=== PATIENT | female | born 1980 | race American Indian/Alaskan Native ===

== ENCOUNTER 2016-07-16 16:59 | Emergency (ER) | payer OTHER, MEDICAID ==
[2016-07-16 17:18] VITALS: BP 113/70
== END 2016-07-17 01:23 | disposition left against medical advice (07) ==
LOC: ED 16:59
DX: M79.89 Other specified soft tissue disorders (principal); Z53.21 Procedure and treatment not carried out due to patient leaving prior to being seen by health care provider

== ENCOUNTER 2017-01-13 23:50 | Emergency (ER) | payer MEDICAID, OTHER ==
[2017-01-14] MEDS ORDERED: NACL 0.9% 1000 ML 1,000 ML IV ONE (00:06)
[2017-01-14 00:55] LABS: Basophils % (Auto) 0.7 % (0.0-1.8); Eosinophils % (Auto) 0.6 % (0.0-4.3); Hematocrit 37.4 % (30.3-42.9); Hemoglobin 12.2 gm/dl (10.1-14.3); Mean Corpuscular HGB Conc 33 % (30-34); Mean Corpuscular Hemoglobin 28 pg (28-32); Mean Corpuscular Volume 87 fl (79-97); Platelet Count 290 K/mm3 (140-440); Red Blood Count 4.32 M/mm3 (3.65-5.03); Red Cell Distribution Width 14.7 % (13.2-15.2); White Blood Count 5.2 K/mm3 (4.5-11.0)
[2017-01-14 01:05] LABS: INR 1.12 (0.87-1.13)
[2017-01-14 01:06] LABS: Partial Thromboplastin Time 31.5 Sec. (24.2-36.6)
[2017-01-14 01:12] LABS: Alanine Aminotransferase 10 units/L (7-56); Albumin 4.1 g/dL (3.9-5); Albumin/Globulin Ratio 1.4 %; Alkaline Phosphatase 65 units/L (35-129); Anion Gap 18 mmol/L; Blood Urea Nitrogen 7 mg/dL (7-17); Calcium 8.7 mg/dL (8.4-10.2); Carbon Dioxide 24 mmol/L (22-30); Chloride 103.3 mmol/L (98-107); Glucose 96 mg/dL (65-100); Lipase 21 units/L (13-60); Sodium 142 mmol/L (137-145); Total Protein 7.1 g/dL (6.3-8.2)
[2017-01-14] MEDS ORDERED: K-DUR PO ONE (03:41)
--- NOTE | 2017-01-14 05:16 | Emergency Department Report ---
HPI - General Chief Complaint: GI Bleed Time Seen by Provider: 01/14/17 03:40 - HPI HPI: This is a 36-year-old Afro-[place] female presents to the emergency department with a few different complaints. The patient says that she has a three-day history of some rectal bleeding in which she sees maroon-colored blood on the stool in the toilet bowl and on the toilet paper. She denies any rectal pain. She also has a 1 week history of some pelvic discomfort. She denies any discharge, dysuria or any vaginal bleeding. Finally, the patient complains of some nonspecific dizziness. She says it feels more like the room is spinning then as if she is going to pass out. She denies any headache, vision change or any neurological deficits. She took some Motrin for her symptoms without any relief. She denies any past medical history. Her primary care physician is Dr. Nicole Villatoro. No recent travel or sick contacts at home. ED Past Medical Hx - Past Medical History Previous Medical History?: No Hx Hypertension: No Hx Diabetes: No Hx Deep Vein Thrombosis: No Hx Renal Disease: No Hx Sickle Cell Disease: No Hx Seizures: No Hx Asthma: No Hx HIV: No - Surgical History Past Surgical History?: No - Social History Smoking Status: Never Smoker Substance Use Type: None - Medications Home Medications: Home Medications Medication Instructions Recorded Confirmed Last Taken Type No Known Home Medications [No 05/08/16 05/08/16 Unknown History Reported Home Medications] ED Review of Systems ROS: Stated complaint: BLOOD IN STOOL/ABD PAIN/HEADACHE/DIZZINESS Other details as noted in HPI Comment: All other systems reviewed and negative Constitutional: denies: chills, fever Eyes: denies: eye pain, eye discharge, vision change ENT: denies: ear pain, throat pain Respiratory: denies: cough, shortness of breath, wheezing Cardiovascular: denies: chest pain, palpitations Gastrointestinal: melena, other (rectal bleeding). denies: nausea, diarrhea Genitourinary: denies: dysuria, discharge Musculoskeletal: denies: back pain, joint swelling, arthralgia Skin: denies: rash, lesions Neurological: other (dizziness). denies: weakness, confusion Physical Exam - Physical Exam Vital Signs: Vital Signs 01/14/17 00:08 Temperature 98.7 F Pulse Rate 88 Respiratory 14 Rate Blood Pressure 113/74 [Right] O2 Sat by Pulse 98 Oximetry Physical Exam: GENERAL: The patient is well-developed well-nourished. HEENT: Normocephalic. Atraumatic. Extraocular motions are intact. Patient has moist mucous membranes. Pupils equal reactive to light bilaterally. Fatigable horizontal nystagmus. NECK: Supple. Trachea is mid line. CHEST/LUNGS: Clear to auscultation. There is no respiratory distress noted. HEART/CARDIOVASCULAR: Regular. There is no tachycardia. There is no gallop rub or murmur. ABDOMEN: Abdomen is soft, nontender. Patient has normal bowel sounds. There is no abdominal distention. SKIN: There is no rash. There is no edema. There is no diaphoresis. NEURO: The patient is awake, alert, and oriented. The patient is cooperative. The patient has no focal neurologic deficits. The patient has normal speech and gait. MUSCULOSKELETAL: There is no tenderness or deformity. There is no limitation range of motion. There is no evidence of acute injury. RECTAL: No hemorrhoids or lesions seen. No gross blood. There was no stool to obtain for guaiac testing. ED Course Vital Signs 01/14/17 00:08 Temperature 98.7 F Pulse Rate 88 Respiratory 14 Rate Blood Pressure 113/74 [Right] O2 Sat by Pulse 98 Oximetry ED Medical Decision Making - Lab Data Result diagrams: 01/14/17 00:28 01/14/17 00:28 - EKG Data -: EKG Interpreted by Ar EKG shows normal: sinus rhythm, axis, intervals, QRS complexes, ST-T waves Rate: normal - EKG Data When compared to previous EKG there are: previous EKG unavailable Interpretation: normal EKG - Radiology Data Radiology results: report reviewed Transvaginal/pelvic ultrasound shows no ovarian mass or torsion. Uterus is unremarkable. There is a hemorrhagic nabothian cyst in the cervix measuring 12 mm x 16 mm. There are cystic follicles in the ovaries. There is no free pelvic fluid. - Medical Decision Making 36-year-old female presents to the ED with complaint of rectal bleeding. There is no gross blood. There is not much stool seen for guaiac testing. No lesions or hemorrhoids. Labs are unremarkable. No leukocytosis or anemia. No electrolyte abnormalities, renal insufficiency or glucose abnormalities. Patient has a complaint of some pelvic discomfort. She is not . There is no vaginal discharge or bleeding. Transvaginal/pelvic ultrasound shows a nabothian cyst but otherwise there is no ovarian torsion or mass in the uterus is unremarkable. She complains of some nonspecific dizziness that appears more consistent with vertigo. However the patient is currently asymptomatic with this. She has some fatigable horizontal nystagmus. No complaint of any headache and there is no focal, motor or sensory deficits in her cranial nerves are intact. The patient has good follow-up with primary care physician and she'll be given a referral for gastroenterology as she may need a colonoscopy in the future with her rectal bleeding. She will return to the ER with any worsening of her symptoms or any acute distress. Critical Care Time: No Critical care attestation.: If time is entered above; I have spent that time in minutes in the direct care of this critically ill patient, excluding procedure time. ED Disposition Clinical Impression: Dizziness, Pelvic pain, Rectal bleeding, Nabothian cyst Disposition: TO HOME OR SELFCARE Is pt being admited?: No Condition: Stable Instructions: Rectal Bleeding (ED), Vertigo (ED), Dizziness (ED) Additional Instructions: Please follow-up with your primary care physician in the next few days. I've given you a referral for a local promotions producer, Dr. Gonzalez, in order follow-up regarding a rectal bleeding as you may need a colonoscopy in the near future. I've also given you multiple referrals for [facility] to follow- up regarding the nabothian cyst and her pelvic discomfort. Return to the emergency department with any worsening of her symptoms or any acute distress. Referrals: PRIMARY CAREMD [Primary Care Provider] - 3-5 Days [facility] [Outside] - 3-5 Days [facility] [Provider Group] - 3-5 Days [facility] 3-5 Days [facility] [Provider Group] - 3-5 Days QUEENIE GONZALEZ MD [Staff Physician] - 3-5 Days Forms: Accompanied Note Time of Disposition: 05:44
--- NOTE | 2017-01-14 05:18 | Ultrasound Report ---
FINAL REPORT PROCEDURE: US TRANSVAGINAL TECHNIQUE: Real-time transvaginal sonography in multiple planes of the pelvis was performed with image documentation. This examination was performed without Doppler. Vascular abnormalities, including ovarian torsion, will not be detectable without Doppler evaluation. CPT 03395 HISTORY: pelvic pain COMPARISON: No prior studies are available for comparison. FINDINGS: UTERUS Size: 8.1 x 3.7 x 4.9 cm. Endometrial thickness: 6 mm. Orientation: anteverted. Cervix: There is a hemorrhagic nabothian cyst measuring 12 millimeters x 16 millimeters.. Fibroids/masses: None. RIGHT Ovary: 3.3 x 1.3 x 2 cm. Appearance: There are cystic follicles measuring up to 8 millimeters.. LEFT Ovary: 3.4 x 1.7 x 2.7 cm. Appearance: There are cystic follicles measuring up to 6 millimeters. There is no ovarian mass or torsion.. Pelvic fluid: None. Other: None. IMPRESSION: Uterus is unremarkable.. There is a hemorrhagic nabothian cyst in the cervix measuring 12 millimeters x 16 millimeters.. There are cystic follicles in the ovaries. There is no mass or torsion. There is no free pelvic fluid.
--- NOTE | 2017-01-14 05:18 | Ultrasound Report ---
FINAL REPORT PROCEDURE: US PELVIS DUPLEX DOPPLER COMP TECHNIQUE: Real-time transabdominal sonography in multiple planes of the pelvis was performed with image documentation. Grayscale, color flow Doppler imaging and velocity spectral waveform analysis of the ovaries was employed (duplex imaging). CPT 22859 and 80198 FINDINGS: UTERUS Size: 8.1 x 3.7 x 4.9 cm. Endometrial thickness: 6 mm. Orientation: anteverted. Cervix: There is a hemorrhagic nabothian cyst measuring 12 millimeters x 16 millimeters.. Fibroids/masses: None. RIGHT Ovary: 3.3 x 1.3 x 2 cm. Appearance: There are cystic follicles measuring up to 8 millimeters.. LEFT Ovary: 3.4 x 1.7 x 2.7 cm. Appearance: There are cystic follicles measuring up to 6 millimeters. There is no ovarian mass or torsion.. Pelvic fluid: None. Other: None. IMPRESSION: Uterus is unremarkable.. There is a hemorrhagic nabothian cyst in the cervix measuring 12 millimeters x 16 millimeters.. There are cystic follicles in the ovaries. There is no mass or torsion.
[2017-01-14] MEDS ORDERED: NORCO 5/325 PO ONE (05:38)
[2017-01-14 07:13] VITALS: BP 106/60
[2017-01-14] MEDS ORDERED: NORCO 5/325 ONE (07:48)
== END 2017-01-14 07:53 | disposition home or self-care (01) ==
LOC: ED 23:50
DX: K62.5 Hemorrhage of anus and rectum (principal); N88.8 Other specified noninflammatory disorders of cervix uteri
CPT/HCPCS: 36415; 76830; 80053; 83690; 84703; 85025; 85610; 85730; 86850; 86900; 86901; 93005; 93010; 93975